=== PATIENT | male | born 1980 | race Caucasian/White ===

== ENCOUNTER 2019-11-29 20:05 | Emergency (ER) | payer OTHER, SELFPAY ==
[2019-11-29 20:13] VITALS: BP 147/81; PULSE 85; RESP 15; O2SAT 96; BMI 24.3
--- NOTE | 2019-11-29 20:18 | XR_ITS ---
PROCEDURE: XR RIBS LT 2V CLINICAL INDICATION: PAIN Posttraumatic pain on the left COMPARISON: No exams were available for comparison FINDINGS: Frontal view of the chest shows some mild atelectatic changes in the lung bases. No evidence of pneumothorax. There is old right clavicular fracture. Multiple views of the left ribs show no obvious fracture or dislocation. No lytic or blastic change. IMPRESSION: Bibasilar atelectasis. No definite fracture. Consider chest CT with 3D reformats of the ribs if pain persists. Dictated by: Donis Hughes MD 11/30/2019 07:40 Electronically signed by Donis Hughes MD in [place] 11/30/2019 07:40
[2019-11-29 20:20] VITALS: BP 147/81; PULSE 85; RESP 15; TEMP 36.9; O2SAT 96; BMI 24.3
[2019-11-29 21:31] VITALS: BP 147/81; PULSE 85; RESP 15; TEMP 36.9; O2SAT 96
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
== END 2019-11-29 21:44 | disposition home or self-care (01) ==
PROVIDERS: Emergency Provider Nurse Practitioner; PCP Family Medicine
DX: S20.212A Contusion of left front wall of thorax, initial encounter (principal); W01.0XXA Fall on same level from slipping, tripping and stumbling without subsequent striking against object, initial encounter; Y92.89 Other specified places as the place of occurrence of the external cause
CPT/HCPCS: 71100; 99201; 99203

== ENCOUNTER → 2019-12-05 15:38 | Outpatient (CLI) | payer OTHER, SELFPAY ==
--- NOTE | 2019-12-05 | XR_ITS ---
PROCEDURE: XR CHEST 2V CLINICAL HISTORY: LT. SIDED CHEST WALL PAIN COMPARISON: XR RIBS LT 2V from 11/29/2019 XR RIBS LT MIN 3V W CXR1V from 12/05/2019 FINDINGS: The cardiomediastinal silhouette and pulmonary vascularity are within normal limits. The lungs are clear without infiltrates, suspicious nodules, or pleural effusions. Nondisplaced fracture is now noted of the 4th 5th and 6th ribs on the left laterally. No evidence of pneumothorax. IMPRESSION: Nondisplaced left 4th 5th and 6th rib fractures Dictated by: Donis Hughes MD 12/05/2019 16:42 Electronically signed by Donis Hughes MD in [place] 12/05/2019 16:42
--- NOTE | 2019-12-05 | XR_ITS ---
PROCEDURE: XR RIBS LT MIN 3V W CXR1V CLINICAL INDICATION: LT. SIDED CHEST WALL PAIN COMPARISON: XR RIBS LT 2V from 11/29/2019 FINDINGS: Nondisplaced fractures are now identified involve the left 4th 5th and 6th ribs laterally. These were not visible on the previous exam. IMPRESSION: Nondisplaced left 4th, 5th, and 6th rib fractures Dictated by: Donis Hughes MD 12/05/2019 16:45 Electronically signed by Donis Hughes MD in [place] 12/05/2019 16:45
== END ==
PROVIDERS: PCP Family Medicine; Visit Provider Family Medicine
DX: R07.89 Other chest pain (principal)
CPT/HCPCS: 71046; 71101

== ENCOUNTER 2020-08-27 10:36 | Emergency (ER) | payer OTHER, SELFPAY ==
[2020-08-27 10:55] VITALS: BP 125/84; PULSE 83; RESP 16; TEMP 36.6; O2SAT 99; BMI 28.8
--- NOTE | 2020-08-27 10:58 | HMH.EDUTC ---
[facility] [place]: Exposure to COVID-19 virus Disposition: Home, Self-Care Condition on Discharge: Good Instructions: Preventing the Spread of Coronavirus Discharge Instructions Additional Instructions: Drink plenty of fluids. Take tylenol for pain or fever. Return if you begin to have difficulty breathing. Follow up with your regular doctor. GO TO THE ER FOR ANY WORSENING SYMPTOMS Referrals: Elvis Mehta MD [Primary Care Provider] - Forms: Work/School Release Time of Disposition: 10:58 Medical Decision Making - Medical Records Medical records reviewed: No: I reviewed the patient's medical records. - Willian Inquiry Pt receiving controlled substance: No Vital Signs: 08/27/20 10:55 08/27/20 11:00 Temperature 98 F 98 F Temperature Source Oral Pulse Rate 82 Pulse Rate [Right] 83 Respiratory Rate 16 14 Blood Pressure 119/82 Blood Pressure [Right Arm] 125/84 Blood Pressure Mean [Right Arm] 97 02 Sat by Pulse Oximetry 99 Oxygen Delivery Method Room Air [facility] [place] - General Stated complaint: Covid Test Time Seen by Provider: 08/27/20 10:58 - History of Present Illness Provider Complaint: He states that he was exposed to covid-19 at his job last week. He was sent here for a covid test today. - Related Data Previous Rx's Medication Instructions Recorded Ibuprofen [Ibuprofen 600mg 600 mg PO Q6HP PRN #30 tab 03/29/19 Tablet] Allergies Allergy/AdvReac Type Severity Reaction Status Date / Time Iodinated Contrast Media Allergy Verified 08/27/20 10:55 [Iodinated Contrast Media - Oral and] [facility] History - Hepatitis A Screen Attestation statement:: This patient has been screened for Hepatitis A risk factors. I have reviewed the patient's past medical history: Yes Medical History: Denies:: Cancer, Diabetes Mellitus Type 1, Diabetes Mellitus Type 2, Internal Pacemaker, MRSA Other Surgeries: No: Pacemaker Amputation: No Fractures: Yes - Social History Smoking Status: Current every day smoker Tobacco Type: cigarettes # Packs/Day (cigarettes): 1 Alcohol Intake: never Occupational Status: employed Household Members: spouse ROS Obtained: Yes All systems reviewed & no additional complaints - Constitutional Constitutional: Reports system reviewed and no additional complaints, except as docu - Eyes Eyes: Reports system reviewed and no additional complaints, except as docu - ENT Ears, Nose, Mouth, and Throat: Reports system reviewed and no additional complaints, except as docu - Cardiovascular Cardiovascular: Reports system reviewed and no additional complaints, except as docu - Respiratory Respiratory: Reports system reviewed and no additional complaints, except as docu - Gastrointestinal Gastrointestingal: Reports: system reviewed and no additional complaints, except as docu Physical Exam - General General appearance: alert, in no apparent distress - Head Head exam: atraumatic, normocephalic, normal inspection - Eye Eye exam: Present: normal appearance, PERRL, EOMI - ENT ENT exam: Present: normal exam, normal oropharynx, mucous membranes moist, TM's normal bilaterally, normal external ear exam - Neck Neck exam: Present: normal inspection, full ROM, trachea midline. Absent: meningismus, lymphadenopathy - Chest Chest inspection: Present: normal inspection, symmetric chest wall rise. Absent: tenderness - Respiratory Respiratory exam: Present: normal lung sounds bilaterally. Absent: respiratory distress - Cardiovascular Cardiovascular exam: Present: regular rate, normal rhythm. Absent: JVD - Abdominal Exam Abdominal exam: Present: soft, normal bowel sounds. Absent: distention, tenderness, guarding - Extremities Exam Extremities exam: Present: normal inspection, full ROM, normal capillary refill. Absent: calf tenderness - Back Exam Back exam: Present: normal inspection. Absent: tender
[2020-08-27 11:00] VITALS: BP 119/82; PULSE 82; RESP 14; TEMP 36.6
== END 2020-08-27 11:02 | disposition home or self-care (01) ==
PROVIDERS: Emergency Provider Nurse Practitioner Family; PCP Family Medicine
DX: Z20.822 Contact with and (suspected) exposure to COVID-19 (principal); F17.210 Nicotine dependence, cigarettes, uncomplicated
CPT/HCPCS: 99202; G0463; U0003

== ENCOUNTER 2021-01-21 17:06 | Emergency (ER) | payer OTHER, SELFPAY ==
[2021-01-21 18:50] VITALS: BP 132/82; PULSE 71; RESP 19; TEMP 37; O2SAT 96; BMI 26.2
--- NOTE | 2021-01-21 19:05 | HMH.EDUTC ---
[facility] – [place] Disposition Clinical Impression: Cough, Encounter for laboratory testing for COVID-19 virus Disposition: Home, Self-Care Condition on Discharge: Good Instructions: Cough, DI for COVID-19 (Suspected or Confirmed ), Preventing the Spread of Coronavirus Discharge Instructions Additional Instructions: *Monitor Temp, Over the counter Motrin or Tylenol as directed/as needed Tylenol every 4 hours and Motrin every 6 hours (as long as your family doctor has told you that you can take it) for fever or pa-in. and straight to ER if unable to lower temp less than 101.0 after medication given *Warm salt water gargles may help to soothe the throat *Throat Lozenges *Warm fluids like tea with honey may help to soothe the throat *Sleep elevated *Humidifier/Vaporizer *Flonase 2 sprays in each nostril daily but be aware that it may take 2-3 days before you notice improvement HOME ISOLATION It is important you home isolate and follow the below guidelines as you await the results of your test and if you are still having symptoms if COVID-19 is detected on test results: Stay home, except to get medical care. Restrict activities outside your home. If condition worsens seek medical care and Call ahead to your healthcare provider or Emergency Room to notify them you have COVID-19 If possible, put on a facemask before emergency medical services arrive or [facility]. Separate yourself from other people and animals in your home. Do not go to work, school, or public areas. Avoid using public transportation, ride-shares, or taxis. As much as possible, stay in a specific room and away from other people in your home. Use a separate bathroom if available. Make sure that shared spaces in the home have good air flow, such as by an air conditioner or anopened window, weather permitting. Have another member of your household care for your pets. If you must care for your pet, wear a facemask, and wash your hands before and after you interact with your pet. It is best for people sick with COVID-19 to limit contact with animals until we know more about the virus. If possible, wear a face mask when you are around other people or pets, and before you enter [facility] provider?s office. If you are not able to wear a face mask, then people who live with you should not be in the same room with you, or they should wear a face mask if they enter your room. Follow up IMMEDIATELY for new or worsening symptoms or no Noticeable improvement over the next 48-72 hours. 911 for difficulty breathing or swallowing You were tested for today for COVID19 your test result should be back in the next 24-48 hours, Check the [facility] Portal to see if your test results are back in the next 48 it may say detected that means your result is positive.You was given handout instructions on how log on and see your results. If you do not have internet access you may call the [facility] for your results [phone] You was given a handout with instructions for Self Quarantine and Self isolation for while you wait on test results and what to do if they are positive If you are positive the Health Dept will be contacting you also Make sure to take your Vitamins Vit. C Vit D and Zinc if you can take them Prescriptions: Fluticasone Propionate [Flonase 50mcg nasal spray 16gm] 1 spr NS DAILY #1 ml Transmission Status: P[facility] to [facility] Benzonatate [Tessalon Perle 100mg Cap*] 100 mg PO TID PRN #15 cap PRN Reason: Cough Transmission Status: Pending to [facility] Referrals: Elvis Mehta MD [Primary Care Provider] - As needed Forms: Work/School Release Time of Disposition: 19:16 Medical Decision Making - Willian Inquiry Pt receiving controlled substance: No Willian was queried for this patient: No Vital Signs: 01/21/21 18:50 Temperature 98.6 F Temperature Source Oral Pulse Rate [Right Brachial] 71 Respiratory Rate 19 Blood Pressure [Right Arm] 132/82 Blood P
[2021-01-21 19:20] VITALS: BP 132/82; PULSE 71; RESP 19; TEMP 37; O2SAT 96
--- NOTE | 2021-01-22 12:25 | PC.NURSE ---
Notified pt of positive results
== END 2021-01-21 19:28 | disposition home or self-care (01) ==
PROVIDERS: Emergency Provider Nurse Practitioner; PCP Family Medicine
DX: U07.1 COVID-19 (principal); F17.210 Nicotine dependence, cigarettes, uncomplicated
CPT/HCPCS: 99202; G0463; U0003

== ENCOUNTER → 2021-03-21 14:29 | Outpatient (CLI) | payer OTHER, SELFPAY ==
[2021-03-21 14:36] LABS: Adenovirus,PCR Not Detected (NotDetected); Bordetella Pertussis Not Detected (NotDetected); Chlamydophila Pneumoniae, PCR Not Detected (NotDetected); Coronavirus 19, PCR Not Detected (NotDetected); Coronavirus 229E Not Detected (NotDetected); Coronavirus NL63 Not Detected (NotDetected); Coronavirus OC43 Not Detected (NotDetected); Coronovirus HKU1,PCR Not Detected (NotDetected); Human Metapneumovirus Not Detected (NotDetected); Influenza A, PCR Not Detected (NotDetected); Influenza AH1, 2009 Not Detected (NotDetected); Influenza AH1, PCR Not Detected (NotDetected); Influenza AH3,PCR Not Detected (NotDetected); Influenza B, PCR Not Detected (NotDetected); Mycoplasma Pneumoniae, PCR Not Detected (NotDetected); Parainfluenza 1, PCR Not Detected (NotDetected); Parainfluenza 2, PCR Not Detected (NotDetected); Parainfluenza 3, PCR Not Detected (NotDetected); Parainfluenza 4, PCR Not Detected (NotDetected); Respiratory Syncytial Virus Not Detected (NotDetected); Rhinovirus/Enterovirus Not Detected (NotDetected)
[2021-03-21 15:32] LABS: Basophils # 0.1 K/mm3 (0-0.2); Basophils % 0.8 % (0.1-2.0); Eosinophils # 0.2 K/mm3 (0.0-0.4); Eosinophils % 1.2 % (0.1-12.0); Hematocrit 52.9 % (42.0-52.0); Hemoglobin 17.4 g/dL (14.1-18.0); Lymphocytes # 2.7 K/mm3 (0.7-4.5); Lymphocytes % 21.2 % (10-50); Mean Corpuscular HGB Conc 32.9 g/dL (31.8-35.4); Mean Corpuscular Hemoglobin 31.3 pg (27.0-31.2); Mean Corpuscular Volume 95.1 fl (80-94); Mean Platelet Volume 8.3 fl (7.4-10.4); Monocytes # 0.5 K/mm3 (0.1-1.0); Monocytes % 4.1 % (1.7-9.3); Neutrophils # 9.3 K/mm3 (1.8-7.8); Neutrophils % 72.8 % (37.0-80.0); Platelet Count 334 K/mm3 (142-424); Red Blood Count 5.56 M/mm3 (4.60-6.20); Red Cell Distribution Width 13.3 % (11.5-17.5); White Blood Count 12.7 K/mm3 (4.8-10.8)
== END ==
LOC: LAB 14:33
PROVIDERS: Visit Provider Family Medicine
DX: Z20.822 Contact with and (suspected) exposure to COVID-19 (principal)
CPT/HCPCS: 36415; 85025; 87581; 87632; 87798; C9803; U0003; U0005

== ENCOUNTER 2021-06-05 13:41 | Emergency (ER) | payer OTHER, SELFPAY ==
[2021-06-05 14:31] VITALS: BP 141/90; PULSE 68; RESP 19; TEMP 37.1; O2SAT 99; BMI 25.9
--- NOTE | 2021-06-05 15:02 | HMH.EDUTC ---
[facility] – [place] Disposition Clinical Impression: Sinusitis Qualifiers: Sinusitis location: unspecified location Chronicity: unspecified Qualified Code(s): J32.9 - Chronic sinusitis, unspecified Disposition: Home, Self-Care Condition on Discharge: Good Instructions: Sinusitis, DI for Sinusitis, DI for Cough -- Adult, Acute Bronchitis Additional Instructions: ? Start antibiotic today. Be sure to complete entire prescription even if feeling better ? Monitor temp. Tylenol every 4 hours as needed and / or ibuprofen every 6 hours as needed ( As long as your primary care physician has told you that it ok to take both. For fever/aches/pains ER if no less than 101 despite Tylenol or Motrin ? Humidifier/vaporizer or hot steamy shower *Tessalon Perles will not cause drowsiness but use at bedtime to help stop cough so that you may get some rest. *Start steroid today. Helps with inflammation therefore, cough and wheezing. Follow directions on the package. Reviewed side effects. Patient reports taking them before. Follow up IMMEDIATELY for new or worsening of symptoms OR no noticeable improvement over the next 48-72 hours. 911 immediately for any life threatening symptoms such as chest pain or difficulty breathing Prescriptions: Benzonatate [Benzonatate 100mg cap] 100 mg PO Q8HP PRN #15 cap PRN Reason: Cough Transmission Status: Pending to [facility] methylPREDNISolone [Medrol 4mg tab] 4 mg PO DIRECTED #21 tab Transmission Status: [facility] to [email or web address] Azithromycin [Z-Ej 250mg Tab] 250 mg PO DIRECTED #6 tab Transmission Status: Pending to [facility] Referrals: Elvis Mehta MD [Primary Care Provider] - As needed Time of Disposition: 15:14 Medical Decision Making - Willian Inquiry Pt receiving controlled substance: No Willian was queried for this patient: No Vital Signs: 06/05/21 14:31 Temperature 98.7 F Temperature Source Oral Pulse Rate [Left] 68 Respiratory Rate 19 Blood Pressure [Right Arm] 141/90 H Blood Pressure Mean [Right Arm] 107 02 Sat by Pulse Oximetry 99 [facility] [place] HPI - General Stated complaint: cough, congestion Time Seen by Provider: 06/05/21 15:03 Mode of Arrival: Ambulatory Source of Information: Patient Limitations: No Limitations Description of Symptoms (Recalled from Triage Doc. by RN): pt c/o cough and congestion x1wk. HEENT Symptoms (Recalled from RN notes): Yes Resp Symptoms (Recalled from RN notes): Yes Skin Symptoms (Recalled from RN notes): No MS Symptoms (Recalled from RN notes): No Functional Status (Recalled from RN notes): wnl - History of Present Illness Provider Complaint: Patient states that he has been having sinus pressure and congestion along with cough for well over a week States that he is an everyday smoker and gets bronchitis around this time each year States that he has been working out in the cold and thinks it give him a sinus infection - Related Data Previous Rx's Medication Instructions Recorded Ibuprofen [Ibuprofen 600mg 600 mg PO Q6HP PRN #30 tab 03/29/19 Tablet] Benzonatate [Tessalon Perle 100mg 100 mg PO TID PRN #15 cap 01/21/21 Cap*] Fluticasone Propionate [Flonase 1 spr NS DAILY #1 ml 01/21/21 50mcg nasal spray 16gm] Azithromycin [Z-Ej 250mg Tab] 250 mg PO DIRECTED #6 tab 06/05/21 Benzonatate [Benzonatate 100mg 100 mg PO Q8HP PRN #15 cap 06/05/21 cap] methylPREDNISolone [Medrol 4mg 4 mg PO DIRECTED #21 tab 06/05/21 tab] Allergies Allergy/AdvReac Type Severity Reaction Status Date / Time Iodinated Contrast Media Allergy Verified 08/27/20 10:55 [Iodinated Contrast Media - Oral and] - Worker's Comp Is this a Worker's Comp case?: No [facility] History - Hepatitis A Screen Drug use history?: No High risk sexual behaviors?: No History of sexually transmitted infection?: No Currently employed?: No Childcare worker?: No Do you have indoor plumbing?: Yes Do you have electrici
[2021-06-05 15:22] VITALS: BP 141/90; PULSE 68; RESP 19; TEMP 37.1
== END 2021-06-05 15:23 | disposition home or self-care (01) ==
PROVIDERS: Emergency Provider Nurse Practitioner; PCP Family Medicine
DX: J32.9 Chronic sinusitis, unspecified (principal)
CPT/HCPCS: 99202; G0463

== ENCOUNTER 2025-01-26 15:29 | Emergency (ER) | payer BC, SELFPAY ==
--- NOTE | 2025-01-26 15:34 | HMH.EDGENADL ---
Discharge Plan Disposition Patient Disposition: Home, Self-Care Condition: Good Prescriptions Prescriptions: New epinephrine [EpiPen] 0.3 mg/0.3 mL auto-injector 0.3 mg IM Q10M PRN (Reason: anaphylaxis) Qty: 1 0RF Rx Instructions: for 2 doses No Action benzonatate 100 MG capsule 100 mg PO TID PRN (Reason: Cough) Qty: 15 0RF fluticasone propionate 120 SPR/BOT bottle 1 spr NS DAILY Qty: 1 0RF Rx Instructions: each nostril daily azithromycin 250 MG tablet 250 mg PO DIRECTED Qty: 6 0RF Rx Instructions: Take two (2) tablets on day #1, then one (1) tablet day #2 thru #5 methylprednisolone 4 MG tablet 4 mg PO DIRECTED Qty: 21 0RF Rx Instructions: Take as directed on package instructions benzonatate 100 MG capsule 100 mg PO Q8HP PRN (Reason: Cough) Qty: 15 0RF ibuprofen 600 MG tablet 600 mg PO Q6HP PRN (Reason: Mild Pain) Qty: 30 0RF Referrals Follow up/Referrals: Elvis Mehta MD [Primary Care Provider, Medical] - See instructions Activity Restrictions/Add. Instructions Additional Instructions/Restrictions: Please return to the emergency department with any worsening signs or symptoms, please utilize epinephrine pen if have any other previous allergic reaction. Please follow-up with your primary care doctor in the upcoming days/weeks. Clinical Impressions Clinical Impression: Bee sting Instructions Patient Instructions: DI for Insect Bites and Stings Print Language Print Language: Kazakh Discharge ED Provider: Torres Zaidi General Adult HPI <YUNI Underwood - Last Filed: 01/26/25 15:53> General Chief complaint: Allergic Reaction Stated complaint: stung by bees Time Seen by Provider: 01/26/25 15:34 Mode of Arrival: Ambulatory Source of Information: Patient Limitations: No Limitations History of Present Illness HPI narrative: 44-year-old male presents to the emergency department after being stung by [email or web address] , on his left side, twice, that happened around 3:10 PM, patient has any fever chills chest pain shortness of breath, does endorse some localized pain and swelling to the area, as well as impurities, denies any throat closing up sensation, denies any difficulty breathing, no chest pain, no abdominal pain no nausea no vomiting no constipation no diarrhea, no urinary type symptomatology, patient has been stung by insect/bee in the past, he is quite unsure if this was a bee wasp or yellowjacket, he has been stung on the face, and he states that his face swelled up . Denies any real anaphylactic reaction to insect bite or sting. Patient is a current everyday smoker, denies any alcohol or drug use, otherwise unremarkable past medical history does not take any other medications at home initial triage vitals are unremarkable. Please note that above description of symptoms, in this electronic medical record under categorization of recalled from ER triage doctor by RN are reflective of an initial nursing assessment, however, is not reflective of my full history and physical exam that was personally taken and clarified. Consequentially, this preceding description of symptoms, which may include the patient's categorized chief complaint in the EMR, do not reflect my personal clinical impression, and the ultimate description of history of present illness and patient stated complaints should be deferred to this section of the note. Unless stated otherwise or congruent with this section of the note, additional signs, symptoms, or incongruence should be interpreted as inaccurate with my clinical impression. Onset (ago): minute(s) Related Data Previous Rx's ?Medication ?Instructions ?Recorded ibuprofen 600 mg tablet 600 mg PO Q6HP PRN Mild Pain #30 03/29/19 tabs benzonatate 100 mg capsule 100 mg PO TID PRN Cough #15 caps 01/21/21 fluticasone propionate 50 1 spr NS DAILY #1 mL 01/21/21 mcg/actuation nasal spray,suspension azithromycin 250 mg tablet 250 mg PO DIRECTED #6 tabs 06/05/21 benzonatate 100 mg capsule 100 mg PO Q8HP PRN Cough #15 caps 06/05/21 methylprednisolone 4 mg tablet 4 mg PO DIRECTED #21 tabs 06/05/21 epinephrine 0.3 mg/0.3 mL 0.3 mg (0.3 mL) IM Q10M PRN 01/26/25 injection, auto-injector (EpiPen) anaphylaxis #1 ea Allergies Allergy/AdvReac Type Severity Reaction Status Date / Time Iodinated Contrast Media Allergy Verified 08/27/20 10:55 (Iodinated Contrast Media - Oral and) [facility] <YUNI Underwood - Last Filed: 01/26/25 15:53> [facility] Disclaimer: The information contained in this section may have been updated after the patient was seen, as this information can be updated by other users. Social History Smoking Status: Current every day smoker tobacco type: cigarettes packs per day: 1 second hand exposure: No alcohol intake: never current occupational status: employed Travel in the last 8 weeks?: None household members: spouse caffeine: Yes Have you lived/traveled outside [place] in past 30 days?: No Contact w/someone who lives/traveled outside [place] past 30 days?: No Exposure to someone with infectious disease in past 14 days?: No Do you have a fever (greater than 100.4 F or 38 C)?: No Have you tested positive for COVID-19?: No Exposed to someone with COVID-19 in past 14 days?: No Do you have a sore throat?: No Do you have a cough?: No Do you have any weakness?: No Do you have any diarrhea?: No Are you experiencing any unusual bleeding?: No Do you have any muscle aches/pain?: No Do you have any abdominal pain?: No Are you experiencing loss of taste or smell?: No <YUNI Underwood - Last Filed: 01/26/25 15:53> ROS Obtained: Yes All systems reviewed & no additional complaints except as documented Physical Exam <YUNI Underwood - Last Filed: 01/26/25 15:53> General General appearance: alert and in no apparent distress Head Head exam: atraumatic and normocephalic Eye Eye exam: Present PERRL and EOMI ENT ENT exam: Present normal exam, normal oropharynx, mucous membranes moist and other (Oropharyngeal exam is unremarkable, no oropharyngeal edema, no anaphylaxis,) Neck Neck exam: Present normal inspection Chest Chest inspection: Present normal inspection and symmetric chest wall rise Respiratory Respiratory exam: Present normal lung sounds bilaterally; Absent respiratory distress Cardiovascular Cardiovascular exam: Present regular rate and normal rhythm Abdominal Exam Abdominal exam: Present soft; Absent tenderness Extremities Exam Extremities exam: Present normal inspection Neurological Exam Neurological exam: Present alert and oriented X3 Psychiatric Psychiatric exam: Present normal affect Skin Skin exam: Present warm, dry, rash and other (Urticaria noted on the left flank, x 2, obvious localized reaction, stinger is not present, blanchable,) Medical Decision Making <YUNI Underwood - Last Filed: 01/26/25 15:53> Medical Records Medical records reviewed: Yes I reviewed the patient's medical records. Screening: Per USPSTF and CDC recommendations, given the prevalence of disease in our region, it is our hospital?s policy to screen for HIV and viral Hepatitis for all patients aged 18 and over and those with ongoing risk factors. Willian Inquiry Pt receiving controlled substance: No Willian was queried for this patient: No Vital Signs: 01/26/25 15:40 01/26/25 16:08 Temperature 98.6 F 98.6 F Temperature Source Oral Pulse Rate 75 Pulse Rate [Right] 75 Respiratory Rate 18 18 Blood Pressure 129/89 Blood Pressure [Right Arm] 129/89 Blood Pressure Mean [Right Arm] 102 02 Sat by Pulse Oximetry 97 Oxygen Delivery Method Room Air Orders (Tests/Meds): ED MEDICATIONS Discontinued Medications Generic Name Dose Route Start Last Admin Trade Name Freq PRN Reason Stop Dose Admin Dexamethasone 10 mg 01/26/25 15:44 01/26/25 15:55 Dexamethasone 4mg Tablet PO 01/26/25 15:45 10 mg ONCE ONE Administration Famotidine 40 mg 01/26/25 15:44 01/26/25 15:55 Famotidine 20mg Tablet PO 01/26/25 15:45 40 mg ONCE ONE Administration Loratadine 10 mg 01/26/25 15:44 01/26/25 15:55 Loratadine 10mg Tablet PO 01/26/25 15:45 10 mg ONCE ONE Administration Medical Decision Narrative: 44-year-old male presents emergency department with insect/bee sting x 2, happened 30 minutes ago, differential diagnose include but not limited to, allergic reaction, insect sting, urticaria, anaphylaxis among others. I discussed this patient's case with the attending physician Dr. Zaidi Will give the patient 10 mg cetirizine milligram p.o., 4 mg p.o. famotidine, 10 mg p.o. dexamethasone, patient has no active signs and symptoms of anaphylaxis, will prescribe the patient epinephrine pen to use as needed, patient has no documented anaphylaxis previously to bee sting, patient voiced understanding and agreed with current treatment plan/discharge plan. Patient will return to the emergency department with any worsening signs or symptoms. Patient and friend voiced understanding and agreement with the current treatment plan/discharge plan. <Torres Zaidi MD - Last Filed: 01/26/25 20:30> Vital Signs: 01/26/25 15:40 01/26/25 16:08 Temperature 98.6 F 98.6 F Temperature Source Oral Pulse Rate 75 Pulse Rate [Right] 75 Respiratory Rate 18 18 Blood Pressure 129/89 Blood Pressure [Right Arm] 129/89 Blood Pressure Mean [Right Arm] 102 02 Sat by Pulse Oximetry 97 Oxygen Delivery Method Room Air Orders (Tests/Meds): ED MEDICATIONS Discontinued Medications Generic Name Dose Route Start Last Admin Trade Name Jose PRN Reason Stop Dose Admin Dexamethasone 10 mg 01/26/25 15:44 01/26/25 15:55 Dexamethasone 4mg Tablet PO 01/26/25 15:45 10 mg ONCE ONE Administration Famotidine 40 mg 01/26/25 15:44 01/26/25 15:55 Famotidine 20mg Tablet PO 01/26/25 15:45 40 mg ONCE ONE Administration Loratadine 10 mg 01/26/25 15:44 01/26/25 15:55 Loratadine 10mg Tablet PO 01/26/25 15:45 10 mg ONCE ONE Administration Medical Decision Narrative: 44-year-old male presents emergency department with insect/bee sting x 2, happened 30 minutes ago, differential diagnose include but not limited to, allergic reaction, insect sting, urticaria, anaphylaxis among others. I discussed this patient's case with the attending physician Dr. Zaidi Will give the patient 10 mg cetirizine milligram p.o., 4 mg p.o. famotidine, 10 mg p.o. dexamethasone, patient has no active signs and symptoms of anaphylaxis, will prescribe the patient epinephrine pen to use as needed, patient has no documented anaphylaxis previously to bee sting, patient voiced understanding and agreed with current treatment plan/discharge plan. Patient will return to the emergency department with any worsening signs or symptoms. Patient and friend voiced understanding and agreement with the current treatment plan/discharge plan. I was consulted by the ELE, and we discussed the complexity of the problems being addressed. I approved the treatment and management plan for this patient's care in the emergency department, thus performing a substantive portion of the medical decision making. Torres Zaidi MD Critical Care <YUNI Underwood - Last Filed: 01/26/25 15:53> Critical Care Time Critical Care Time: No
[2025-01-26 15:40] VITALS: BP 129/89; PULSE 75; RESP 18; TEMP 37; O2SAT 97; BMI 29.7
--- OUTSIDE RECORDS SUMMARY | 2025-01-26 15:47 | XMS_ITS | Clinical Summary ---
Author Organization [facility] Address [address] [place] [address] Phone Care Team Providers Care Computer Systems Software Engineer Name Role Phone Elvis Mehta MD Primary Care Provider + [phone] Allergies Active Allergy Reactions Criticality Noted Date Comments Iodinated Contrast Media Hives 05/25/2015 Medications No known medications Surgical History Surgery Date Site/Laterality Comments ORTHOPEDIC SURGERY Social History Tobacco Use Types Packs/Day Years Used Date Smoking Tobacco: Every Day Cigarettes Sex and Gender Information Value Date Recorded Sex Assigned at Not on file Legal Sex Male 10:41 PM EST Gender Identity Not on file Sexual Orientation Not on file Obstetrics History Last Filed Vital Signs Vital Sign Reading Time Taken Comments Blood Pressure 132/79 05/26/2015 12:45 AM EST Pulse 84 05/26/2015 12:45 AM EST Temperature 37.6 C (99.6 F) 05/25/2015 10:44 PM EST Respiratory Rate 18 05/26/2015 12:45 AM EST Oxygen Saturation 96% 05/26/2015 12:45 AM EST Inhaled Oxygen Concentration - - Weight 95.3 kg (210 lb) 05/25/2015 10:44 PM EST Height 198.1 cm (6' 6 ) 05/25/2015 10:44 PM EST Body Mass Index 24.27 05/25/2015 10:44 PM EST Plan of Treatment Health Maintenance Due Date Last Done Comments Annual Wellness Exam 1982 DTaP/TDaP/Td (1 - Tdap) 1998 Hepatitis B Vaccine (1 of 3 - 19+ 3-dose series) 1998 COVID-19 Vaccine (2023-2 5 season) 2024 Cologuard 02/13/2024 Colon Cancer Screening 02/13/2024 Colonoscopy 02/13/2024 FIT 02/13/2024 Sigmoidoscopy 02/13/2024 Virtual Colonography 02/13/2024 Influenza Vaccine (#1) 2025 Meningococcal B Vaccine Aged Out No l onger eligible based on patient's age to complete this topic Pneumococcal Vaccine 0-49 Aged Out No longer eligible based on patient's age to complete this topic Care Teams Computer Systems Software Engineer Relationship Specialty Start Date End Date Elvis Mehta MD [address] [place] [address] [place] [id number] PCP - General Family Medicine 05/26/15
[2025-01-26] MEDS: FAMOTIDINE 20MG TABLET 40 MG PO (15:55)
[2025-01-26] MEDS: LORATADINE 10MG TABLET 10 MG PO (15:55)
[2025-01-26] MEDS: DEXAMETHASONE 4MG TABLET 10 MG PO (15:55)
[2025-01-26 16:08] VITALS: BP 129/89; PULSE 75; RESP 18; TEMP 37; O2SAT 97
== END 2025-01-26 16:10 | disposition home or self-care (01) ==
PROVIDERS: Emergency Provider Emergency Medicine; PCP Family Medicine
DX: T63.441A Toxic effect of venom of bees, accidental (unintentional), initial encounter (principal)
CPT/HCPCS: 99282; J8540